=== PATIENT | male | born 1990 | race Caucasian/White ===

== ENCOUNTER → 2020-01-31 09:08 | Outpatient (BNVA) | payer OTHER, SELFPAY | PROVIDERS: Family Provider Family Medicine; PCP Family Medicine; Visit Provider Family Medicine | DX: Z13.6 Encounter for screening for cardiovascular disorders (principal); K50.811 Crohn's disease of both small and large intestine with rectal bleeding; K21.9 Gastro-esophageal reflux disease without esophagitis; R03.0 Elevated blood-pressure reading, without diagnosis of hypertension | CPT/HCPCS: 80053; 80061; 85025; 86140 ==

== ENCOUNTER 2021-09-20 18:25 | Emergency (ER) | payer OTHER, SELFPAY ==
[2021-09-20 18:33] VITALS: BP 178/110; PULSE 96; RESP 16; TEMP 37.2; O2SAT 99
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
--- NOTE | 2021-09-20 18:41 | XRR_ITS ---
PROCEDURE INFORMATION: Exam: XR Right Hand Exam date and time: 09/20/2021 7:02 PM Age: 31 years old Clinical indication: Pain; Right; Prior surgery; Surgery date: 6+ months; Surgery type: RT. Hand; Additional info: Injury TECHNIQUE: Imaging protocol: Radiologic exam of the Right hand. Views: 3 or more views. COMPARISON: No relevant prior studies available. FINDINGS: Bones/joints: Mildly displaced oblique fracture of the mid diaphysis of the 5th metacarpal on the right hand. No dislocation. Normal bone mineralization. No joint effusion. Joint spaces are maintained. Soft tissues: Moderate soft tissue swelling over the 5th metacarpal. No radiopaque foreign body. XR/XR hand RT min 3V* [id number] IMPRESSION: 1. Mildly displaced oblique fracture of the mid diaphysis of the 5th metacarpal on the right hand. 2. Moderate soft tissue swelling over the 5th metacarpal.
--- NOTE | 2021-09-21 14:29 | DCPLANNER ---
strategic communications manager had message to schedule a follow up appointment for patient with ortho. strategic communications manager read patients chart and it stated that patient was going to follow up with Dr. Mackenzie, in [facility]. strategic communications manager called patient, he stated that he will be following up with Dr. Mackenzie.
== END 2021-09-20 20:07 | disposition home or self-care (01) ==
PROVIDERS: Emergency Provider Nurse Practitioner Family; PCP Family Medicine
DX: S62.326A Displaced fracture of shaft of fifth metacarpal bone, right hand, initial encounter for closed fracture (principal); X50.9XXA Other and unspecified overexertion or strenuous movements or postures, initial encounter
CPT/HCPCS: 73130; 99283